=== PATIENT | male | born 1985 | race Caucasian/White ===

== ENCOUNTER 2016-07-07 16:52 | Emergency (ER) | payer OTHER ==
[~2016-07-07] VITALS: Ht 180.3 cm; Wt 68.0 kg
[2016-07-07 16:55] VITALS: BP 121/82; PULSE 106; RESP 14; TEMP 98.1; O2SAT 98
[2016-07-07] MEDS ORDERED: ASPIRIN 81 MG CHEW TAB PO ONE (17:15)
--- NOTE | 2016-07-07 17:22 | PD ---
HPI . Chest pain Chief Complaint: Chest Pain Time Seen by Provider: 17:09 Travel History International Travel<30 days: No Contact w/Intl Traveler<30days: No Traveled to known affect area: No History of Present Illness HPI Patient presents with left-sided chest pain which has been bothering him for a couple days. He states that it became acutely worse when he was arrested about an hour ago. He was shortness of breath. He denies nausea or diaphoresis. He states that he has had this pain before and seen at the hospital for before but did not stick around for the results. He does give a history of drug abuse. [id number]: Left chest QUALITY: Sharp DURATION: 2 days TIMING: Acutely worse after being arrested just prior to arrival MODIFYING FACTORS: No noted exacerbating or relieving factors ASSOCIATED SYMPTOMS: Shortness of breath PFSH Past Medical History Asthma: Yes Anxiety: Yes Depression: Yes Cancer: No Cardiovascular Problems: Yes Chest Pain: Yes (R/T cocaine use in past) Diminished Hearing: No Endocrine: No Genitourinary: No Immune Disorder: No Musculoskeletal: No Neurologic: No Psychiatric: Yes (PSA) Reproductive: No Respiratory: No Immunizations Current: No Tetanus Vaccination: Unknown Influenza Vaccination: No Social History Alcohol Use: Yes (Denies) Tobacco Use: Yes (1 PPD) Substance Use: Yes (IV Dilaudid, meth, marijuana) Allergies-Medications (Allergen,Severity, Reaction): Coded Allergies: No Known Allergies (Verified , 07/07/16) Reported Meds & Prescriptions Reported Meds & Active Scripts Active No Active Prescriptions or Reported Medications Review of Systems Except as stated in HPI: all other systems reviewed are Neg General / Constitutional: No: Fever, Chills Cardiovascular: Positive: Chest Pain or Discomfort Respiratory: Positive: Shortness of Breath Gastrointestinal: No: Nausea, Vomiting Psychiatric: Positive: Substance Abuse Physical Exam Narrative GENERAL: Patient is lying on the stretcher with his head turned away from me. He has not looked at me. SKIN: Warm and dry. HEAD: Atraumatic. Normocephalic. EYES: Pupils equal and round. ENT: No nasal bleeding or discharge. Mucous membranes pink and moist. NECK: Trachea midline. Neck is supple. CARDIOVASCULAR: Regular rate and rhythm. Heart sounds are normal. RESPIRATORY: No accessory muscle use. Lungs are clear with full air movement throughout. GASTROINTESTINAL: Abdomen soft, non-tender, nondistended. MUSCULOSKELETAL: No obvious deformities. No edema. NEUROLOGICAL: Awake and alert. No obvious cranial nerve deficits. Motor grossly within normal limits. Normal speech. PSYCHIATRIC: Appropriate mood and affect; insight and judgment normal. Data Data Last Documented VS Vital Signs Date Time Temp Pulse Resp B/P Pulse Ox O2 Delivery O2 Flow Rate FiO2 07/07/16 16:55 106 07/07/16 16:55 98.1 14 121/82 98 Orders Basic Metabolic Panel (Bmp) (07/07/16 17:09) Ckmb (Isoenzyme) Profile (07/07/16 17:09) Complete Blood Count With Diff (07/07/16 17:09) Magnesium (Mg) (07/07/16 17:09) Troponin I (07/07/16 17:09) Chest, Single Ap (07/07/16 17:09) Aspirin Chew (Aspirin Chew) (07/07/16 17:15) CKMB (07/07/16 17:20) CKMB% (07/07/16 17:20) Labs Laboratory Tests Test 07/07/16 17:20 White Blood Count 5.4 TH/MM3 Red Blood Count 4.17 MIL/MM3 Hemoglobin 12.9 GM/DL Hematocrit 38.2 % Mean Corpuscular Volume 91.7 FL Mean Corpuscular Hemoglobin 30.9 PG Mean Corpuscular Hemoglobin 33.7 % Concent Red Cell Distribution Width 13.9 % Platelet Count 359 TH/MM3 Mean Platelet Volume 7.4 FL Neutrophils (%) (Auto) 48.2 % Lymphocytes (%) (Auto) 32.8 % Monocytes (%) (Auto) 10.0 % Eosinophils (%) (Auto) 6.7 % Basophils (%) (Auto) 2.3 % Neutrophils # (Auto) 2.6 TH/MM3 Lymphocytes # (Auto) 1.8 TH/MM3 Monocytes # (Auto) 0.5 TH/MM3 Eosinophils # (Auto) 0.4 TH/MM3 Basophils # (Auto) 0.1 TH/MM3 CBC Comment DIFF FINAL Differential Comment Sodium Level 143 MEQ/L Potassium Level 3.6 MEQ/L Chloride Level 107 MEQ/L Carbon Dioxide Level 28.7 MEQ/L Anion Gap 7 MEQ/L Blood Urea Nitrogen 18 MG/DL Creatinine 1.10 MG/DL Estimat Glomerular Filtration 79 ML/MIN Rate Random Glucose 122 MG/DL Calcium Level 8.4 MG/DL Magnesium Level 2.0 MG/DL Total Creatine Kinase 112 U/L Troponin I LESS THAN 0.02 NG/ML MDM Medical Decision Making Medical Screen Exam Complete: Yes Emergency Medical Condition: Yes Interpretation(s) EKG shows a sinus rhythm with a rate of 105. LVH. No ST segment elevation or depression. Differential Diagnosis Differential diagnosis of chest pain includes but is not limited to musculoskeletal pain, pulmonary embolism, acute coronary syndrome, pneumonia, pleurisy Narrative Course Patient presents complaining with left-sided chest pain which is been present for a couple of days and which became acutely worse when he was arrested just prior to presentation. He does admit to drug abuse. CBC & BMP Diagram 07/07/16 17:20 Total CK is 112 and troponin is less than 0.02. Last Impressions Chest X-Ray 07/07/16 1709 Signed Impressions: Service Date/Time: Saturday, July 07, 2016 17:12 - CONCLUSION: No acute disease. Ruiz Smith MD This patient is medically cleared to go to retirement. Diagnosis Primary Impression: Chest pain Qualified Code: R07.9 - Chest pain, unspecified type Scripts No Active Prescriptions or Reported Meds Disposition: DISCHARGE HOME Condition: Stable Alla Sandy MD Jul 07, 2016 17:22
[2016-07-07 17:33] LABS: AUTOMATED NEUTROPHIL # 2.6 TH/MM3 (1.8-7.7); BASOPHIL # 0.1 TH/MM3 (0-0.2); BASOPHIL % 2.3 % (0.0-2.0); EOSINOPHIL # 0.4 TH/MM3 (0-0.4); EOSINOPHIL % 6.7 % (0.0-4.0); HEMATOCRIT 38.2 % (39.0-51.0); HEMO FLAGS DIFF FINAL; LYMPH % 32.8 % (9.0-44.0); LYMPHOCYTE # 1.8 TH/MM3 (1.0-4.8); MEAN CELL VOLUME 91.7 FL (80.0-100.0); MEAN CORPUSCULAR HEMOGLOBIN 30.9 PG (27.0-34.0); MEAN CORPUSCULAR HGB CONC 33.7 % (32.0-36.0); NEUT % 48.2 % (16.0-70.0); PLATELET COUNT 359 TH/MM3 (150-450); RED BLOOD COUNT 4.17 MIL/MM3 (4.50-5.90); RED CELL DISTRIBUTION WIDTH 13.9 % (11.6-17.2); WHITE BLOOD COUNT 5.4 TH/MM3 (4.0-11.0)
[2016-07-07 17:40] LABS: CHLORIDE 107 MEQ/L (98-107); POTASSIUM 3.6 MEQ/L (3.5-5.1); SODIUM (NA) 143 MEQ/L (136-145)
--- NOTE | 2016-07-07 17:40 | RADHPO ---
EXAM DATE/TIME: 07/07/2016 17:12 [facility] COMPARISON: CHEST SINGLE AP, March 24, 2016, 10:35. INDICATIONS : Left side chest pain. MEDICAL HISTORY : Asthma. SURGICAL HISTORY : None. ENCOUNTER: Initial ACUITY: 2 days PAIN SCORE: 8/10 LOCATION: Left chest FINDINGS: A single view of the chest demonstrates the lungs to be symmetrically aerated without evidence of mas s, infiltrate or effusion. The cardiomediastinal contours are unremarkable. Osseous structures are intact. CONCLUSION: No acute disease. Ruiz Smith MD on July 07, 2016 at 17:38 Board Certified Radiologist. This report was verified electronically.
[2016-07-07 17:43] LABS: ANION GAP 7 MEQ/L (5-15); BICARBONATE 28.7 MEQ/L (21.0-32.0); BLOOD UREA NITROGEN 18 MG/DL (7-18)
[2016-07-07 17:47] LABS: GLOMERULAR FILTRATION RATE 79 ML/MIN (>89)
[2016-07-07 17:50] LABS: CREATINE KINASE 112 U/L (39-308)
[2016-07-07 18:02] LABS: CKMB 1.1 NG/ML (0.5-3.6)
[2016-07-07 18:29] VITALS: BP 124/80
--- NOTE | 2016-07-08 08:19 | EKG ---
Date Performed: 07/07/2016 Time Performed: 16:51:58 PTAGE: 31 years EKG: Sinus tachycardia. Normal ECG except for rate Compared to prior electrocardiogram,Rate has increased and nonspecific ST T-wave changes have improved. PREVIOUS TRACING : 03/24/2016 09.50 DOCTOR: Floyd Jarvis Interpretating Date/Time 07/08/2016 08:17:50
== END 2016-07-07 18:33 | disposition home or self-care (01) ==
LOC: PHED 16:52
DX: R07.9 Chest pain, unspecified (principal); R00.0 Tachycardia, unspecified; R06.02 Shortness of breath; J45.909 Unspecified asthma, uncomplicated; F17.210 Nicotine dependence, cigarettes, uncomplicated
CPT/HCPCS: 71010; 80048; 82550; 82552; 83735; 84484; 85025; 93005; 99284